=== PATIENT | female | born 1985 | race Caucasian/White ===

== ENCOUNTER 2023-04-19 04:00 | Emergency (ER) | payer OTHER ==
[~2023-04-19] VITALS: Ht 162.6 cm; Wt 56.7 kg
[2023-04-19 04:00] VITALS: BP 155/80; PULSE 136; RESP 17; TEMP 97.3; O2SAT 100
[2023-04-19] MEDS ORDERED: LORazepam 2 MG/ML VIAL IM STA (04:16)
[2023-04-19] MEDS ORDERED: LORazepam 2 MG/ML VIAL IM/IVP STA (04:16)
[2023-04-19] MEDS ORDERED: HALOPERIDOL IM 5 MG/ML VIAL IM ONE (04:20)
[2023-04-19] MEDS ORDERED: diphenhydrAMINE 50 MG/ML VIAL IM ONE (04:20)
[2023-04-19] MEDS ORDERED: NACL 0.9% 1,000 ML IV ONE ×3 (04:30→09:30)
[2023-04-19 04:57] LABS: BASOPHILS # (AUTO) 0.1 K/uL (0.00-0.22); BASOPHILS % (AUTO) 0.4 % (0.0-2.0); EOSINOPHILS % (AUTO) 0.1 % (0.0-4.0); HEMATOCRIT 38.7 % (36-48); HEMOGLOBIN 12.6 g/dL (12.0-16.0); LYMPHOCYTES % (AUTO) 5.3 % (20.5-51.1); MEAN CORPUSCULAR HEMOGLOBIN 30 pg (27-31); MEAN CORPUSCULAR HGB CONC 33 g/dL (33-37); MEAN CORPUSCULAR VOLUME 92.7 fL (80-94); MONOCYTES # (AUTO) 0.8 K/uL (0.8-1.0); MONOCYTES % (AUTO) 4.3 % (1.7-9.3); NEUTROPHILS # (AUTO) 16.8 K/uL (1.8-7.7); NEUTROPHILS % (AUTO) 89.9 % (42.2-75.2); PLATELET COUNT (AUTO) 343 K/uL (140-450); RED BLOOD CELL COUNT(AUTO) 4.18 MIL/uL (4.20-5.40); RED CELL DISTRIBUTION WIDTH 15.2 % (11.6-13.7); WHITE BLOOD COUNT (AUTO) 18.7 K/uL (4.8-10.8)
[2023-04-19 05:09] LABS: CHLORIDE 100 mmol/L (98-107); POTASSIUM 3.7 mmol/L (3.5-5.1); SODIUM SERUM 140 mmol/L (136-145)
[2023-04-19 05:30] LABS: ACETAMINOPHEN 0.8 ug/ml (10-30); ALANINE AMINOTRANSFERASE 75 U/L (12-78); ALBUMIN 3.3 g/dL (3.4-5.0); ALCOHOL, BLOOD < 3 mg/dL (<10); ALKALINE PHOSPHATASE 175 U/L (50-136); ASPARTATE AMINOTRANSFERASE 177 U/L (15-37); CALCIUM 8.4 mg/dL (8.5-10.1); CARBON DIOXIDE 20.6 mmol/L (21-32); CREATINE KINASE, TOTAL 2984 U/L (26-192); CREATININE 1.1 mg/dL (0.6-1.3); GFR ARICAN-AMERICAN 71 mL/min (>90); GFR NON ARICAN-AMERICAN 59 mL/min (>90); GLUCOSE 182 mg/dL (74-106); TOTAL PROTEIN, SERUM 7.5 g/dL (6.4-8.2); UREA NITROGEN, BLOOD 7 mg/dL (7-18)
[2023-04-19 05:34] LABS: SALICYLATE < 2.8 mg/dL (2.8-20.0)
[2023-04-19 06:24] LABS: APPEARANCE,URINE CLEAR (CLEAR); BILIRUBIN,URINE NEGATIVE (NEGATIVE); BLOOD, URINE 1+ (NEGATIVE); COLOR,URINE YELLOW (YELLOW); LEUKOCYTE ESTERASE ,URINE NEGATIVE (NEGATIVE); NITRITE, URINE NEGATIVE (NEGATIVE); PROTEIN,URINE NEGATIVE (NEGATIVE); UGLUCOSE NEGATIVE (NEGATIVE); UROBILINOGEN,URINE 0.2 EU/dL (0.2 - 1)
[2023-04-19] MEDS ORDERED: FAMOTIDINE 20 MG/2 ML VIAL ONE (06:24)
[2023-04-19 06:36] LABS: AMPHETAMINE, URINE NEGATIVE ng/ml (NEG <=1000); BARBITURATE, URINE NEGATIVE ng/ml (NEG <=200)
[2023-04-19 06:37] LABS: BENZODIAZEPINE, URINE POSITIVE ng/mL (NEG <=200); CANNABINOID, URINE POSITIVE ng/mL (NEG <=50); COCAINE, URINE NEGATIVE ng/mL (NEG <=300); OPIATE, URINE NEGATIVE ng/mL (NEG <=2000); PHENCYCLIDINE SCREEN,URINE NEGATIVE ng/mL (NEG <=25)
[2023-04-19 06:48] LABS: BACTERIA,URINE 0-2 /HPF (None Seen); RBC,URINE 0-5 /HPF (0-5); WBC,URINE 0-5 /HPF (0-5)
[2023-04-19 06:49] LABS: SQUAMOUS EPITHELIAL CELL,UR 0-3 (FEW) /LPF (0-3 (FEW))
[2023-04-19 09:28] VITALS: O2SAT 99
[2023-04-19 12:05] VITALS: O2SAT 98
[2023-04-19 13:07] LABS: CREATINE KINASE, TOTAL 3402 U/L (26-192)
[2023-04-19 15:40] VITALS: O2SAT 98
[2023-04-19 16:15] VITALS: BP 128/85; PULSE 103; RESP 16; TEMP 98.1; O2SAT 100
== END 2023-04-19 16:24 | disposition short-term general hospital (02) ==
LOC: EDBD 04:00 → MED 04:00
DX: F29 Unspecified psychosis not due to a substance or known physiological condition (principal); E86.0 Dehydration; M62.82 Rhabdomyolysis; R41.82 Altered mental status, unspecified; Z20.822 Contact with and (suspected) exposure to COVID-19
CPT/HCPCS: 36415; 70450; 71045; 80053; 80305; 81001; 81025; 82550; 82553; 84484; 84702; 85025; 87426; 96360; 96361; 96372; 99291; G0480; G0482; J1200; J1630; J2060; J3490; J7030; Q0092; 90715; 99285